=== PATIENT | male | born 1945 | race Caucasian/White ===

== ENCOUNTER 2020-05-19 07:06 | Outpatient (REF) | payer MEDICARE, SELFPAY | END 2020-05-19 07:07 | disposition home or self-care (01) | LOC: HO.HMGCLDS 07:06 | PROVIDERS: PCP Internal Medicine; Visit Provider Internal Medicine | DX: Z20.822 Contact with and (suspected) exposure to COVID-19 (principal) | CPT/HCPCS: 36415; C9803; U0003 ==

== ENCOUNTER 2023-01-28 12:35 | Emergency (ER) | payer MEDICARE, SELFPAY ==
--- NOTE | ~2023-01-28 | MR_ITS ---
EXAMINATION: MR LUMBAR SPINE WITHOUT AND WITH CONTRAST CLINICAL INFORMATION: Concern for cauda equina COMPARISON: Same day CT lumbar spine TECHNIQUE: MRI of the lumbar spine was obtained using routine sequences with and without contrast. Intravenous contrast: Gadavist 8.5 mL FINDINGS: Trace anterolisthesis of L2 on L3 and L3 on L4. Trace retrolisthesis of L5 on S1. Heterogeneous marrow signal without suspicious focal osseous lesion. Fatty endplate marrow signal changes are noted at L4-L5 and L5-S1. No significant marrow edema. The vertebral body heights are maintained. Multilevel disc desiccation and height loss, worst at L4-L5. There is osseous fusion across the L5-S1 disc space. The conus medullaris terminates at the level of L1-L2. The distal spinal cord is normal in appearance. The cauda equina nerve roots appear normal. No abnormal intradural enhancement. No significant abnormalities of the paraspinal musculature. Limited evaluation of the intra-abdominal structures without significant abnormalities. Small bilateral renal cysts. The abdominal aorta is of normal contour and caliber. SPINAL LEVELS: L1-L2: Shallow left eccentric disc bulge. Mild facet arthropathy. Mild left neural foraminal narrowing. No significant spinal canal stenosis L2-L3: Left eccentric broad-based disc bulge, moderate facet arthropathy. No significant central spinal canal stenosis. Mild bilateral neural foraminal narrowing L3-L4: There is severe facet arthropathy with bilateral joint effusions and periarticular soft tissue enhancement, presumably on the basis of degenerative arthritis. Ligamentum flavum thickening. Left greater than right foraminal protrusions. Mild right and moderate to severe left neural foraminal narrowing with likely impingement of the exiting left L3 nerve root Flattening of the ventral thecal sac without significant central spinal canal stenosis. L4-L5: Moderate facet arthropathy, ligamentum flavum thickening, broad-based disc osteophyte complex. No significant central spinal canal stenosis. There is mild subarticular zone narrowing, left greater than right and moderate to severe bilateral neural foraminal narrowing with likely impingement of the exiting L4 nerve roots L5-S1: No significant spinal canal or neuroforaminal narrowing. Mild facet arthropathy, endplate spurring, MR/MR lumbar spine wo/w con IMPRESSION: 1. No acute abnormality of the lumbar spine. No significant central spinal canal stenosis. 2. At L3-L4, there is severe facet arthropathy with bilateral joint effusions and periarticular soft tissue enhancement, presumably on the basis of degenerative arthritis. There is moderate to severe left neural foraminal narrowing with likely impingement of the exiting left L3 nerve root. 3. At L4-L5, there is moderate to severe bilateral neural foraminal narrowing with likely impingement of the exiting L4 nerve roots.
--- NOTE | ~2023-01-28 | CT_ITS ---
CT LUMBAR SPINE WITHOUT CONTRAST CLINICAL INFORMATION: Acute on chronic left lower back pain, worsening. COMPARISON: None available. TECHNIQUE: A multidetector CT acquisition of the lumbar spine is obtained without contrast. Multiplanar reformats are acquired and utilized for image interpretation. This CT examination was performed using dose optimization techniques as appropriate, variously including the following: *Automated exposure control *Adjustment of mA and/or kV according to patient size (this includes techniques or standardized protocols for targeted exams where dose is matched to indication/reason for exam; i.e. extremities or head) *Use of iterative reconstruction technique FINDINGS: There are 5 nonrib-bearing lumbar-type vertebral bodies. There is diffuse osteopenia. No definite acute fractures are appreciated with assessment limited by the degree of osteopenia. There are multilevel endplate osteophytes. There is interbody arthrodesis at L5-S1, there is severe disc volume loss at L4-L5, and there is mild disc volume loss at L2-L3 and L3-L4. Vacuum phenomenon within the L2-L3, L3-L4, and L4-L5 discs. There is aortoiliac at this chronic calcification. There is sigmoid diverticulosis. Gallbladder is surgically absent. Bilateral perinephric stranding. A small simple right renal cyst is appreciated for which no further imaging follow-up is oriented. The prostate gland is enlarged. At L1-L2, there is a diffuse annular disc bulge and bilateral facet arthropathy. No appreciable central canal stenosis. There is mild foraminal encroachment bilaterally. At L2-L3, there is a diffuse annular disc bulge and there is moderate bilateral facet arthropathy and ligamentum flavum thickening likely resulting in mild to moderate central canal stenosis and mild bilateral foraminal encroachment. A left lateral disc osteophyte protrusion may contact the extraforaminal left L2 nerve root. At L3-L4, there is a diffuse annular disc bulge and there is severe bilateral facet arthropathy and ligamentum flavum thickening. A left lateral disc protrusion results in suspected severe left-sided foraminal stenosis and compression of the exiting left L3 nerve root. There is a superiorly migrating far left lateral component of this disc herniation. Likely mild narrowing of the central canal and mild right-sided foraminal encroachment. At L4-L5, there is a diffuse annular disc bulge and there is severe bilateral facet arthropathy and ligamentum flavum thickening resulting in suspected mild to moderate central canal stenosis, bilateral subarticular zone stenosis, and a left lateral disc protrusion containing vacuum phenomenon results in severe left-sided foraminal stenosis with compression of the exiting left L4 nerve root. A right lateral disc protrusion and advanced facet arthropathy result in severe right-sided foraminal stenosis with compression of the exiting right L4 nerve root as well. At L5-S1, there is a diffuse disc osteophyte complex and there is bilateral facet arthropathy without central canal stenosis. There is mild foraminal encroachment bilaterally. CT/CT lumbar spine wo IV con IMPRESSION: - No definite acute osseous findings with assessment very limited by the degree of extensive osteopenia. If there is any clinical concern for an acute fracture, MRI would be much more sensitive in this setting. - At L3-L4, a left lateral disc protrusion results in suspected severe left-sided foraminal stenosis and compression of the exiting left L3 nerve root. There is a superiorly migrating far left lateral component of this disc herniation. - At L4-L5, a left lateral disc protrusion containing vacuum phenomenon results in severe left-sided foraminal stenosis with compression of the exiting left L4 nerve root and a right lateral disc osteophyte protrusion results in severe right-sided foraminal stenosis with compression of the exiting right L4 nerve root. Spondylitic changes at L4-L5 result in suspected mild to moderate central canal stenosis and bilateral subarticular zone stenosis. - Additional degenerative findings throughout the lumbar spine as described. All of the degenerative changes would be better assessed with MRI if not contraindicated.
[2023-01-28 12:48] VITALS: BP 138/77; PULSE 80; RESP 19; TEMP 36.6; O2SAT 100; BMI 25.1
--- NOTE | 2023-01-28 12:48 | ED.BACK ---
HPI - Back Pain/Injury General Chief Complaint: Back Pain/Injury Stated Complaint: acute back pain Time Seen by Provider: 01/28/23 12:56 Source: patient Mode of arrival: ambulatory Limitations: no limitations History of Present Illness HPI Narrative: 77 year old male with pmhx of chronic back pain, presents to the ED today with acute on chronic back pain x5 days. Reports left lower back pain that is typically relieved with muscle rubs/stretches prescribed by chiropractor. Reports seeing his chiropractor 4 days ago for his back pain and was given new stretches to try at home. States that his back pain worsened after trying these new stretches and now his left lower back pain is radiating into his left hip and down the left leg to his knee. Reports seeing his PCP this morning who recommended coming to the ED today to r/o cauda equina syndrome. Additionally endorses increased urge to urinate however cannot make it to the bathroom in time or is unable to go once he gets to the bathroom. Denies saddle paresthesias, bowel or bladder incontinence or retention, IVDU, or previous spinal surgeries. Denies injury, trauma, or falls. Related Data Previous Rx's Medication Instructions Recorded acetaminophen 500 mg tablet 1,000 mg (2 x 500 mg) PO QID PRN 01/28/23 (Tylenol Extra Strength) fever or pain #14 tabs cyclobenzaprine 10 mg tablet 10 mg PO Q8H #14 tabs 01/28/23 ibuprofen 800 mg tablet 800 mg PO Q8H PRN pain #14 tabs 01/28/23 oxycodone 5 mg tablet 5 mg PO Q6H PRN pain #14 tabs 01/28/23 prednisone 20 mg tablet 40 mg (2 x 20 mg) PO DAILY 01/28/23 inflammation 5 days #10 tabs Allergies Allergy/AdvReac Type Severity Reaction Status Date / Time No Known Allergies Allergy Verified 01/28/23 12:48 Review of Systems Review of Systems: Constitutional: No fever, chills, fatigue, night sweats, weight changes ENT/Mouth: No ear pain, hearing loss, nasal congestion, sinus pain, rhinorrhea, sore throat Eyes: No eye pain, swelling, redness, vision changes, discharge Cardio: No chest pain, palpitations, RILEY, orthopnea, peripheral edema Pulm: No SOB, cough, sputum, wheezing, dyspnea, hemoptysis GI: No nausea, vomiting, hematemesis, abdominal pain, diarrhea, constipation, hematochezia, melena : No irregular bleeding, dysuria, frequency, urgency, hesitancy, hematuria, flank pain, urinary flow changes, urinary incontinence or retention MSK: + back pain, neck pain, joint pain, myalgias Skin: No lesions, rashes Neuro: No weakness, numbness, paresthesias, LOC, dizziness, headache All other systems reviewed and are negative. [facility] Past Medical History Attestation statement: The following information was validated with the patient. Source: old records reviewed and nursing notes reviewed Social History Social History Advance Directives: No Advance Directives Information Provided: No Physical Exam Vital Signs: Vital Signs: Last Vital Signs Temp 97.8 F 01/28/23 14:51 Pulse 72 01/28/23 20:36 Resp 19 01/28/23 20:36 BP 148/71 H 01/28/23 20:36 Pulse Ox 98 01/28/23 20:36 O2 Del Method Room Air 01/28/23 20:36 BMI result Body Mass Index 25.1 General: Nontoxic appearing. NAD Skin: Warm and dry. No rashes or lesions. Head: Normocephalic, atraumatic. EENT: PERRLA. EOM intact. Neck: Supple without LAD. Normal ROM. Trachea midline.? Cardiac: Chest wall symmetric. RRR. S1 and S1 appreciated. Lungs: CTA b/l. No rales, rhonchi, or wheezes. Normal respiratory effort without accessory muscle use. Abdomen: No visible lesions or scars. Soft, NT/ND. No rebound or guarding. + BS x4. No CVAT bilaterally. Spine: No overlying erythema, edema or ecchymoses. No midline spinous tenderness. + left paraspinous tenderness to palpation. No palpable step-offs or deformities. Ext: UE/LE atraumatic. Full ROM intact. Capillary refill <2 sec throughout. Pulses 2+ throughout. No edema, cyanosis, or clubbing. Neuro: AO x3. Normal speech. CN 2-12 grossly intact. Strength 5/5 intact throughout.?Sensation intact to light touch. NV intact distally. Reflexes 2+ bilaterally. Normal finger to nose, heel to gómez. Ambulating with steady gait. Psych: Appropriate mood and affect. Responds appropriately to questions. 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 Normal rectal sphincter tone. External hemorrhoid noted with thrombosis or color changes. Stool is normal in appearance. Course Course Course Narrative: This is an RME: Additional HPI, ROS, PE not included below will be deferred to primary provider. Patient is a 77 year old male who presents the emergency department for evaluation of back pain. Coming from PCP office for r/o cauda equina syndrome. Acute on chronic back pain exacerbation of pain 5 days ago, saw chiropractor 4 days ago without significant improvement. Pain predominantly to the left lower back radiating to the left hip and down the left leg. Endorsing urge incontinence urine and stool, most recently having occurred 1 week ago; he feels the urge to go and either does not make it to the restroom in time or is unable to go once he is in the bathroom. Reevaluation(s) Reevaluation #1: 1450--CBC without leukocytosis > no infection. CMP without electrolyte abnormalities requiring intervention. CRP within normal limits. ESR mildly elevated to 20. Awaiting CT results. > on re-evaluation patient reports some improvement with lidocaine patch, Toradol, Flexeril > rectal exam with normal tone. 1540-- CT lumbar spine showing disc bulge at L1-L2, L2-L3, L3-L4, and L4-L5 with severe b/l stenosis. MRI will be ordered to further assess this. 1647-- patient currently awaiting for MRI. Signed out to my colleague HAVEN Quiroz. Reevaluation #2: MRI of lumbar spine revealed chronic changes and impingement although not consistent with cauda equina. Patient has a normal steady gait. He has been ambulating and going to the bathroom without any difficulties or focal deficits. He has not had any urinary bowel incontinence. Therefore patient most likely pinched nerve will DC home with Motrin, Tylenol, oxycodone, Flexeril and prednisone with instructions to follow-up with PCP and to return if any new or worsening symptoms. Patient with at bedside understand agree this plan. Time: 20:41 Medications Administered Discontinued Medications Generic Name Dose Route Start Last Admin Trade Name Freq PRN Reason Stop Dose Admin Cyclobenzaprine HCl 10 mg 01/28/23 14:25 01/28/23 14:55 Cyclobenzaprine Hcl 10 Mg Tablet PO 01/28/23 14:26 10 mg ONCE ONE Administration Gadobutrol 10 ml 01/28/23 19:49 01/28/23 19:49 Gadobutrol 10 Ml Vial IVPUSH 01/28/23 19:50 9 ml ONCE ONE Administration Ketorolac Tromethamine 15 mg 01/28/23 14:26 01/28/23 14:55 Ketorolac Tromethamine 15 Mg/Ml Vial IM 01/28/23 14:27 15 mg ONCE ONE Administration Lidocaine 1 patch 01/28/23 14:25 01/28/23 14:55 Lidocaine 4 % Patch Adh..Patch TRANSDERMA 01/28/23 14:26 1 patch ONCE ONE Administration Protocol Medical Decision Making Medical Decision Making MDM Narrative: 77 year old male with pmhx of chronic low back pain, presents to the ED today with acute on chronic back pain x5 days with radiation to the left hip and left knee. Vital signs stable. Afebrile. Patient nontoxic appearing. In no acute distress. No midline spinous tenderness or palpable step-offs/deformities. + left-sided paraspinal muscle tenderness to palpation. No overlying erythema, edema or ecchymoses. No CVA tenderness bilaterally. 5/5 in strength intact throughout. Sensation intact to light touch throughout. Ambulating with steady gait. Rectal exam with normal sphincter tone. Clinical concern for disc herniation vs fracture vs muscle sprain/strain vs sciatica. Low suspicion for cauda equinus syndrome, cord compression, or epidural abscess. Unlikely UTI, nephrolithiasis, renal colic. Plan to obtain basic labs, inflammatory markers, UA, CT lumbar spine. Will consider spinal MRI upon viewing CT results. Differential Diagnosis Differential Diagnoses: The differential diagnosis associated with the presentation includes As above. Admission/Observation Consideration of admission/observation: Escalation of care including admission/observation considered In this 77-year-old with acute worsening/ changing lumbar pain requiring emergent MRI, admission was considered. Lab Data [facility] Lab Attestation statement: I reviewed the patient's lab results. See above course narrative. 01/28/23 14:30 01/28/23 14:30 Labs: Lab Results 01/28/23 01/28/23 Range/Units 14:30 18:08 WBC 7.6 (4.8-10.8) X10*3/uL RBC 4.12 L (4.60-5.80) X10*6/uL Hgb 12.6 L (14.0-18.0) g/dl Hct 38.5 L (42.0-52.0) % MCV 93.4 (80.0-98.0) fL MCH 30.6 (27.0-33.0) pg MCHC 32.7 (31.0-36.0) g/dl RDW 14.6 (11.0-16.0) % Plt Count 204 (160-400) X10*3/uL MPV 11.6 (9.4-12.4) fL Immature Gran % (Auto) 0.3 (0.0-0.4) % Neut % (Auto) 66.6 (45-73) % Lymph % (Auto) 19.7 L (20-40) % [place] % (Auto) 10.8 (2-11) % Eos % (Auto) 2.1 (0-4) % Baso % (Auto) 0.5 (0-2) % Lymph # (Auto) 1.5 (1.2-4.9) X10*3/uL [place] # (Auto) 0.8 (0.1-1.2) X10*3/uL Eos # (Auto) 0.2 (0.0-0.4) X10*3/uL Baso # (Auto) 0.0 (0.0-0.2) X10*3/uL Abs Immat Gran (auto) 0.02 (0.00-0.03) X10*3/uL Absolute Neuts (auto) 5.1 (2.0-8.3) x10*3/uL Absolute Nucleated RBC 0.000 (0.0-0.012) X10*3/uL Nucleated RBC % (auto) 0.0 (0.0-0.2) /100WBC ESR 20 H (0-15) MM/HR Sodium 140 (135-145) mmol/L Potassium 4.1 (3.3-5.1) mmol/L Chloride 109 H (96-108) mmol/L Carbon Dioxide 22 (22-29) mmol/L Anion Gap 13 (12-20) BUN 24 H (9-16) mg/dL Creatinine 1.25 (0.5-1.4) mg/dL Estim Creat Clear Calc 52.5 Estimated GFR 56 Random Glucose 98 (60-115) mg/dL Calcium 8.7 (8.4-10.2) mg/dL Magnesium 2.1 (1.6-2.6) mg/dL Total Bilirubin 0.7 (0.0-1.0) mg/dL AST 22 (5-37) U/L ALT 19 (0-40) U/L Alkaline Phosphatase 87 (39-117) U/L C-Reactive Protein 0.13 (< or = 0.50) mg/dL Total Protein 7.5 (6.5-8.0) g/dL Albumin 3.7 (3.5-5.0) g/dL Urine Color Yellow Urine Appearance Clear Urine pH 6.0 (5.0-9.0) Ur Specific [place] 1.020 (1.005-1.025) Urine Protein Trace (Neg-Trace) mg/dL Urine Glucose (UA) Negative (Negative) mg/dL Urine Ketones Negative (Negative) mg/dL Urine Blood Negative (Negative) Urine Nitrite Negative (Negative) Ur Leukocyte Esterase Small (1+) H (Negative) Urine RBC 0-2 (0-2) /HPF Urine WBC 6-10 H (0-5) /HPF Ur Squamous Epith Cells 0-2 (0-2) /HPF Urine Bacteria None Seen (None Seen) Hyaline Casts 11-20 (0-2) /LPF Independent Interpretation I performed an independent interpretation of an: CT Scan Interpretation: MRI of lumbar spine reviewed by myself this is my independent interpretation agreeable with radiologist reports no discrepancy Radiology Impression Discussion of test interpretation with radiology: I have reviewed the radiologist's reading. Radiologist Impression: CT lumbar spine wo IV con IMPRESSION: - No definite acute osseous findings with assessment very limited by the degree of extensive osteopenia. If there is any clinical concern for an acute fracture, MRI would be much more sensitive in this setting. - At L3-L4, a left lateral disc protrusion results in suspected severe left-sided foraminal stenosis and compression of the exiting left L3 nerve root. There is a superiorly migrating far left lateral component of this disc herniation. - At L4-L5, a left lateral disc protrusion containing vacuum phenomenon results in severe left-sided foraminal stenosis with compression of the exiting left L4 nerve root and a right lateral disc osteophyte protrusion results in severe right-sided foraminal stenosis with compression of the exiting right L4 nerve root. Spondylitic changes at L4-L5 result in suspected mild to moderate central canal stenosis and bilateral subarticular zone stenosis. - Additional degenerative findings throughout the lumbar spine as described. All of the degenerative changes would be better assessed with MRI if not contraindicated. FINDINGS: Trace anterolisthesis of L2 on L3 and L3 on L4. Trace retrolisthesis of L5 on S1. Heterogeneous marrow signal without suspicious focal osseous lesion. Fatty endplate marrow signal changes are noted at L4-L5 and L5-S1. No significant marrow edema. The vertebral body heights are maintained. Multilevel disc desiccation and height loss, worst at L4-L5. There is osseous fusion across the L5-S1 disc space. The conus medullaris terminates at the level of L1-L2. The distal spinal cord is normal in appearance. The cauda equina nerve roots appear normal. No abnormal intradural enhancement. No significant abnormalities of the paraspinal musculature. Limited evaluation of the intra-abdominal structures without significant abnormalities. Small bilateral renal cysts. The abdominal aorta is of normal contour and caliber. SPINAL LEVELS: L1-L2: Shallow left eccentric disc bulge. Mild facet arthropathy. Mild left neural foraminal narrowing. No significant spinal canal stenosis L2-L3: Left eccentric broad-based disc bulge, moderate facet arthropathy. No significant central spinal canal stenosis. Mild bilateral neural foraminal narrowing L3-L4: There is severe facet arthropathy with bilateral joint effusions and periarticular soft tissue enhancement, presumably on the basis of degenerative arthritis. Ligamentum flavum thickening. Left greater than right foraminal protrusions. Mild right and moderate to severe left neural foraminal narrowing with likely impingement of the exiting left L3 nerve root Flattening of the ventral thecal sac without significant central spinal canal stenosis. L4-L5: Moderate facet arthropathy, ligamentum flavum thickening, broad-based disc osteophyte complex. No significant central spinal canal stenosis. There is mild subarticular zone narrowing, left greater than right and moderate to severe bilateral neural foraminal narrowing with likely impingement of the exiting L4 nerve roots L5-S1: No significant spinal canal or neuroforaminal narrowing. Mild facet arthropathy, endplate spurring, MR/MR lumbar spine wo/w con IMPRESSION: 1. No acute abnormality of the lumbar spine. No significant central spinal canal stenosis. 2. At L3-L4, there is severe facet arthropathy with bilateral joint effusions and periarticular soft tissue enhancement, presumably on the basis of degenerative arthritis. There is moderate to severe left neural foraminal narrowing with likely impingement of the exiting left L3 nerve root. 3. At L4-L5, there is moderate to severe bilateral neural foraminal narrowing with likely impingement of the exiting L4 nerve roots. Independent Historian Clinical information obtained from an independent historian. History obtained from or confirmed by: Spouse External Record Review External record reviewed: Inpatient record, Office record, Outpatient record, Prior outpatient labs, Prior outpatient radiology, Primary care record and Outside ED record All prior labs/imaging/EKG and notes that are accessible in our system reviewed by myself Prescription Management I considered prescription management with: Pain Medication Chronic Conditions Patient?s care impacted by: Other (Chronic low back pain) Social Determinants Patient?s care significantly limited by Social Determinants of Health including: Other Social Determinant of Health Critical Care Time Critical Care Time Critical Care Time: Yes Total Critical Care Time: 31 Attestation: Critical care time in the amount of 31 minutes has been provided to the patient in terms of direct patient care, frequent reevaluation, review and interpretation of medical data and results, and management of potentially life-threatening conditions. This is all outside of any medical procedures. Discharge Plan Discharge Clinical Impression: Lumbar radiculopathy, Lumbar nerve root impingement, Degenerative arthritis of lumbar spine Patient Disposition: Home, Self-Care Instructions: Lumbar Radiculopathy (ED) Prescriptions: New ibuprofen 800 mg tablet 800 mg PO Q8H PRN (Reason: pain) Qty: 14 0RF acetaminophen [Tylenol Extra Strength] 500 mg tablet 1,000 mg PO QID PRN (Reason: fever or pain) Qty: 14 0RF cyclobenzaprine 10 mg tablet 10 mg PO Q8H Qty: 14 0RF oxycodone 5 mg tablet 5 mg PO Q6H PRN (Reason: pain) Qty: 14 0RF Rx Instructions: Partial Fill upon patient request. prednisone 20 mg tablet 40 mg PO DAILY 5 Days Qty: 10 0RF Referrals: Catalina Tejeda MD [Primary Care Provider] - 1 day Interventions: ED Discharge Assessment Last Done: 01/28/23 21:12 Discharge Date/Time: 01/28/23 21:12
[2023-01-28 14:33] LABS: MANUAL DIFF FLAG NO
[2023-01-28 14:43] LABS: Basophils Percent Auto 0.5 % (0-2); Eosinophils Absolute Auto 0.2 X10*3/uL (0.0-0.4); Eosinophils Percent Auto 2.1 % (0-4); Hematocrit 38.5 % (42.0-52.0); Hemoglobin 12.6 g/dl (14.0-18.0); Imm Gran Abs Auto 0.02 X10*3/uL (0.00-0.03); Imm Gran Pct Auto 0.3 % (0.0-0.4); Lymphocytes Absolute Auto 1.5 X10*3/uL (1.2-4.9); Lymphocytes Percent Auto 19.7 % (20-40); Mean Corpuscular HGB Conc 32.7 g/dl (31.0-36.0); Mean Corpuscular Hemoglobin 30.6 pg (27.0-33.0); Mean Corpuscular Volume 93.4 fL (80.0-98.0); Mean Platelet Volume 11.6 fL (9.4-12.4); Monocytes Absolute Auto 0.8 X10*3/uL (0.1-1.2); Monocytes Percent Auto 10.8 % (2-11); Neutrophils Absolute Auto 5.1 x10*3/uL (2.0-8.3); Neutrophils Percent Auto 66.6 % (45-73); Platelet Count 204 X10*3/uL (160-400); Red Blood Count 4.12 X10*6/uL (4.60-5.80); Red Cell Distribution Width 14.6 % (11.0-16.0); White Blood Count 7.6 X10*3/uL (4.8-10.8)
[2023-01-28 14:49] LABS: Alanine Aminotransferase 19 U/L (0-40); Albumin Level 3.7 g/dL (3.5-5.0); Alkaline Phosphatase 87 U/L (39-117); Anion Gap 13 (12-20); Aspartate Amino Transferase 22 U/L (5-37); Bilirubin Total 0.7 mg/dL (0.0-1.0); Blood Urea Nitrogen 24 mg/dL (9-16); C Reactive Protein 0.13 mg/dL (< or = 0.50); Calcium 8.7 mg/dL (8.4-10.2); Carbon Dioxide 22 mmol/L (22-29); Chloride 109 mmol/L (96-108); Creatinine Clr Calc Pharmacy 52.5; Estimated Glomerular Filt Rate 56; Glucose Random 98 mg/dL (60-115); Magnesium 2.1 mg/dL (1.6-2.6); Potassium 4.1 mmol/L (3.3-5.1); Sodium 140 mmol/L (135-145); Total Protein 7.5 g/dL (6.5-8.0)
[2023-01-28 14:51] VITALS: BP 127/65; PULSE 60; RESP 18; TEMP 36.6; O2SAT 98
[2023-01-28] MEDS: Cyclobenzaprine HCl 10 MG TABLET PO (14:55)
[2023-01-28] MEDS: Lidocaine 4 % Patch ADH..PATCH 1 PATCH TRANSDERMA (14:55)
[2023-01-28] MEDS: Ketorolac Tromethamine 15 MG/ML VIAL IM (14:55)
[2023-01-28 15:19] LABS: Erythrocyte Sedimentation Rate 20 MM/HR (0-15)
[2023-01-28 18:15] LABS: Appearance Urine Clear; Color Urine Yellow; Glucose Urine UA Negative (Negative); Leukocyte Esterase Urine Small (1+) (Negative); Nitrite Urine Negative (Negative); UMIC TRIGGER UACC YES; Urine Blood Negative (Negative); Urine Ketones Negative (Negative); Urine Protein Trace mg/dL (Neg-Trace)
[2023-01-28 18:25] LABS: Bacteria Urine None Seen (None Seen); RBC Urine 0-2 /HPF (0-2); Squamous Epithelial Cell Urine 0-2 /HPF (0-2); UACC Culture Trigger YES
--- NOTE | 2023-01-28 18:40 | PC.NURSE ---
MRI called to let RN know they had to remove the lidocaine patch.
[2023-01-28] MEDS: gadobutroL 10 ML VIAL IVPUSH (19:49)
[2023-01-28 20:36] VITALS: BP 148/71; PULSE 72; RESP 19; O2SAT 98
== END 2023-01-28 21:12 | disposition home or self-care (01) ==
PROVIDERS: Physician Assistant Medical; Emergency Provider Emergency Medicine Emergency Medical Services; PCP Internal Medicine
DX: M47.26 Other spondylosis with radiculopathy, lumbar region (principal); G54.4 Lumbosacral root disorders, not elsewhere classified
CPT/HCPCS: 36415; 72131; 72158; 80053; 81001; 83735; 85025; 85652; 86140; 87086; 96372; 96374; 99284; 99285; A9585; J1885

== ENCOUNTER 2023-10-06 09:18 | Outpatient (REF) | payer MEDICARE, SELFPAY ==
[2023-10-06 11:12] LABS: Vitamin B12 261 pg/mL (200-900)
== END 2023-10-06 09:19 | disposition home or self-care (01) ==
LOC: HO.LAB 09:18
PROVIDERS: PCP Internal Medicine; Visit Provider Psychiatry & Neurology Neurology
DX: F03.90 Unspecified dementia, unspecified severity, without behavioral disturbance, psychotic disturbance, mood disturbance, and anxiety (principal)
CPT/HCPCS: 36415; 82607

== ENCOUNTER 2024-11-28 09:46 | Outpatient (AMB) | payer MEDICARE, SELFPAY ==
--- NOTE | 2024-11-28 10:12 | A.OFFVIS_ITS ---
Intake Visit Reasons: 6 mnts Multifactorial dementia Allergies No Known Allergies Allergy (Verified 01/28/23 12:48) Medication List - Last Reconciled 11/28/24 by Fernando Peace MD acetaminophen (Tylenol Extra Strength) 1,000 mg (2 x 500 mg) PO QID PRN amlodipine 10 mg PO DAILY cyclobenzaprine 10 mg PO Q8H finasteride 5 mg PO DAILY ibuprofen 800 mg PO Q8H PRN memantine 5 mg PO BID omeprazole 20 mg PO DAILY oxycodone 5 mg PO Q6H PRN prednisone 40 mg (2 x 20 mg) PO DAILY 5 days tamsulosin 0.8 mg PO BEDTIME HPI Comments Details: 78 years old man with hypertension and prostate cancer seen for multifactorial dementia. He was doing ok. SOmeitmes he was not able to sleep due to mind not shutting off. Otherwise, no new issues. Mood was ok. He was active in many activities. [facility] Medical History (Updated 11/28/24 @ 10:14 by Fernando Peace MD) Embolic cerebral infarction Multiple cerebral infarctions Alzheimer disease Multifactorial dementia Review of Systems Const Details: Sometimes difficulty sleeping Physical Exam Neuro Other: Mental Status: Alert and oriented to person, place, and time. Normal attention. Normal spontaneous speech, fluency, and comprehension. No obvious issues with mood and memory. Affect is appropriate. Cranial Nerves: CN II: Visual bowden full to confrontation, visual acuity intact. CN III, IV, : Pupils equal, round, reactive to light and accommodation. Extraocular movements are normal. CN V: Facial sensation is normal. CN VII: Facial movements symmetrical. CN VIII: Hearing intact to bedside conversation is normal. CN IX, X: Palate elevates symmetrically. CN XI: Shoulder shrug and head turn symmetrical. CN XII: Tongue midline without atrophy or fasciculations. Extrapyramidal: Full facial expressions and blinking. No rigidity. Movements are appropriate with no tremor or abnormality. Speech: Normal; no dysarthria or tremor. Assessment & Plan Assessment & Plan (1) Multifactorial dementia: Comment: MRI brain WO at [facility] in Aug 2023: Mod central and cortical atrophy, mod MVD, and multiple b/l embolic looking chronic infarcts Code(s): F03.90 - Unspecified dementia, unspecified severity, without behavioral disturbance, psychotic disturbance, mood disturbance, and anxiety Category: Medical Plan Impression: Multifactorial dementia Rec: Memantine 10mg bid PRN hdyroxyzine for anxiety Medications: New memantine (Namenda) 10 mg PO BID 180 tabs 1RF Coding Level of Care Code Est Pt Level 4 (47639) Diagnoses Multifactorial dementia F03.90
--- OUTSIDE RECORDS SUMMARY | 2024-11-28 10:22 | XMS_ITS | Patient Health Record ---
Author Organization [facility] Address [address] [place] [id number] Care Team Providers Care Sampler Radioactive Waste Name Role Phone Jairo Aguirre Jr Reason For Referral No Information Plan Of Treatment No Information
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
== END 2024-11-28 10:26 | disposition home or self-care (01) ==
LOC: HO.HSM 09:46
PROVIDERS: PCP Internal Medicine; Visit Provider Psychiatry & Neurology Neurology
DX: F03.90 Unspecified dementia, unspecified severity, without behavioral disturbance, psychotic disturbance, mood disturbance, and anxiety (principal)
CPT/HCPCS: 99214

== ENCOUNTER → 2024-11-28 09:46 | Outpatient (BNVA) | payer MEDICARE, SELFPAY | PROVIDERS: PCP Internal Medicine; Visit Provider Psychiatry & Neurology Neurology | DX: G30.9 Alzheimer's disease, unspecified (principal); F02.80 Dementia in other diseases classified elsewhere, unspecified severity, without behavioral disturbance, psychotic disturbance, mood disturbance, and anxiety | CPT/HCPCS: 99212 ==